=== PATIENT | female | born 1970 ===

== ENCOUNTER 2017-02-03 20:17 | Emergency (ER) | payer OTHER ==
[2017-02-03 20:17] VITALS: BMI 27.4
[2017-02-03 20:52] VITALS: RESP 20
--- NOTE | 2017-02-03 21:16 | C.PDOC ---
History Of Present Illness 46 year old female presents to ED with complaints of fever since last night. She reports not feeling well, generalized body aches, headache, urinary frequency. She took ibuprofen with little relief. Denies any dizziness, cough, SOB, chest pain, abdominal pain, rash, recent travel or sick contacts. Time Seen by Provider: 02/03/17 21:06 Chief Complaint (Nursing): Flu-like Symptoms History Per: Patient History/Exam Limitations: no limitations Onset/Duration Of Symptoms: Hrs Current Symptoms Are (Timing): Still Present Location Of Pain: Diffuse Myalgias, Headache Sick Contacts (Context): None Associated Symptoms: Fever, Myalgias, Other ((+) Headache, Urinary frequency. (- ) SOB, chest pain, abdominal pain, rash). denies: Cough Ear Symptoms: Bilateral: None Recent travel outside of the [place]: No Past Medical History Reviewed: Historical Data, Nursing Documentation, Vital Signs Vital Signs: Last Vital Signs Temp 100.3 F H 02/03/17 21:52 Pulse 110 H 02/03/17 21:52 Resp 20 02/03/17 21:52 BP 113/78 02/03/17 21:52 Pulse Ox 99 02/03/17 22:31 - Medical History PMH: No Chronic Diseases Surgical History: No Surg Hx Family History: States: Unknown Family Hx - Social History Hx Alcohol Use: No Hx Substance Use: No - Immunization History Hx Tetanus Toxoid Vaccination: Yes Hx Influenza Vaccination: No Hx Pneumococcal Vaccination: No Review Of Systems Constitutional: Positive for: Fever Eyes: Negative for: Vision Change ENT: Negative for: Ear Pain, Throat Pain Cardiovascular: Negative for: Chest Pain, Palpitations Respiratory: Negative for: Cough, Shortness of Breath Gastrointestinal: Negative for: Vomiting, Abdominal Pain, Diarrhea Genitourinary: Positive for: Frequency Musculoskeletal: Positive for: Other (Generalized body aches) Skin: Negative for: Rash Neurological: Negative for: Headache, Dizziness Physical Exam - Physical Exam Appears: Non-toxic, No Acute Distress Skin: Normal Color, Warm, Dry Head: Atraumatic, Normacephalic Eye(s): bilateral: Normal Inspection, PERRL, EOMI Ear(s): Bilateral: Normal Nose: Normal, No Flaring, No Discharge Oral Mucosa: Moist Throat: Normal, No Erythema, No Exudate Neck: Normal, Supple Chest: Symmetrical Cardiovascular: Rhythm Regular Respiratory: Normal Breath Sounds, No Rales, No Rhonchi, No Wheezing Gastrointestinal/Abdominal: Soft, No Tenderness Back: Normal Inspection, No CVA Tenderness Extremity: Bilateral: Atraumatic, Normal Color And Temperature, Normal ROM Neurological/Psych: Oriented x3, Normal Speech Gait: Steady ED Course And Treatment O2 Sat by Pulse Oximetry: 99 Medical Decision Making Medical Decision Making: Impression: Fever Differential diagnosis includes but not limited to: influenza, viral syndrome, UTI Plan: * RN gave Tylenol during triage * UA, UCG, culture Progress: UA shows Nitrates, LE and WBCs. Will treat with Cipro PO. On re-evaluation patient fever has reduced. She reports feeling mildly better. Explain results to patient. Instruct to drink fluids rest and take Motrin or tylenol for fever. Will discharge with Rx Cipro Disposition Counseled Patient/Family Regarding: Diagnosis, Need For Followup, Rx Given - Disposition Referrals: [facility] [Outside] [facility] [Outside] [facility] [Outside] Disposition: HOME/ ROUTINE Disposition Time: 21:58 Condition: STABLE Additional Instructions: [place] el antibitico dos veces al da. siga con moreira mdico o clnica primaria. Tylenol o Motrin alternando cada 4-6 horas para la fiebre 100.4F o ms alto. Descanse y andreina muchos lquidos Prescriptions: Ciprofloxacin [Cipro] 1 tab PO BID #10 tab Ibuprofen [Motrin] 600 mg PO Q8 #30 tab Instructions: Urinary Tract Infection in Women (ED) Forms: [facility] (Scottish), Work Excuse Print Language: STATELESS - POA Present On Arrival: None - Clinical Impression Clinical Impression: Fever, UTI (urinary tract infection) - Scribe Statement The provider has reviewed the documentation as recorded by the Scribe Jonathan Flores All medical record entries made by the Scribe were at my direction and personally dictated by me. I have reviewed the chart and agree that the record accurately reflects my personal performance of the history, physical exam, medical decision making, and the department course for this patient. I have also personally directed, reviewed, and agree with the discharge instructions and disposition.
[2017-02-03 21:43] LABS: RBC URINE 45 /hpf (0-3); URINE BACTERIA MANY (<OCC); URINE BILIRUBIN NEGATIVE (NEGATIVE); URINE BLOOD 2+ (NEGATIVE); URINE COLOR Yellow (YELLOW); URINE GLUCOSE (UA) NORMAL (Normal); URINE KETONE 1+ mg/dL (NEGATIVE); URINE LEUKOCYTE ESTERASE 3+ Leu/uL (Negative); URINE PROTEIN 1+ mg/dL (NEGATIVE); URINE UROBILINOGEN NORMAL mg/dL (0.2-1.0); WBC URINE 283 /hpf (0-5)
[2017-02-03 21:52] VITALS: BP 113/78; PULSE 110; TEMP 100.3
[2017-02-03 22:00] VITALS: O2SAT 99
== END 2017-02-03 22:30 | disposition home or self-care (01) ==
LOC: C.ER 20:17
DX: N39.0 Urinary tract infection, site not specified (principal); R50.9 Fever, unspecified

== ENCOUNTER 2017-02-05 15:44 | Emergency (ER) | payer OTHER ==
[2017-02-05 15:44] VITALS: BMI 27.4
[2017-02-05 15:51] VITALS: BP 115/72; PULSE 69; RESP 18; TEMP 98; O2SAT 100
--- NOTE | 2017-02-05 18:44 | C.PDOC ---
History Of Present Illness 46 y/o female presents to ED with complaints of mild nausea and x2 episodes of vomiting. Patient states she is currently being treated for UTI, was seen at ED 2 days ago and is compliant with medication. Patient denies fever, hematuria or any other complaints at this time. Chief Complaint (Nursing): Flu-like Symptoms History Per: Patient History/Exam Limitations: no limitations Onset/Duration Of Symptoms: Days Current Symptoms Are (Timing): Still Present Past Medical History Reviewed: Historical Data, Nursing Documentation, Vital Signs Vital Signs: Last Vital Signs Temp 98 F 02/05/17 15:50 Pulse 69 02/05/17 15:50 Resp 18 02/05/17 15:50 BP 115/72 02/05/17 15:50 Pulse Ox 100 02/05/17 18:45 - Medical History PMH: No Chronic Diseases Surgical History: No Surg Hx Family History: States: No Known Family Hx - Social History Hx Alcohol Use: No Hx Substance Use: No - Immunization History Hx Tetanus Toxoid Vaccination: Yes Hx Influenza Vaccination: No Hx Pneumococcal Vaccination: No Review Of Systems Except As Marked, All Systems Reviewed And Found Negative. Constitutional: Negative for: Fever, Chills Gastrointestinal: Positive for: Nausea, Vomiting Genitourinary: Negative for: Hematuria Skin: Negative for: Rash Neurological: Negative for: Weakness, Numbness Physical Exam - Physical Exam Appears: Non-toxic, No Acute Distress Skin: Warm, Dry, No Rash Head: Atraumatic, Normacephalic Eye(s): bilateral: Normal Inspection Oral Mucosa: Moist Neck: Normal ROM, Supple Chest: Symmetrical Cardiovascular: Rhythm Regular Respiratory: Normal Breath Sounds, No Rales, No Rhonchi, No Wheezing Gastrointestinal/Abdominal: Soft, No Tenderness, No Guarding, No Rebound Back: No CVA Tenderness Extremity: Normal ROM, Capillary Refill (<2 seconds) Neurological/Psych: Oriented x3, Normal Motor, Normal Sensation ED Course And Treatment O2 Sat by Pulse Oximetry: 100 (RA) Pulse Ox Interpretation: Normal Progress Note: Patient given nausea medication at ED and prescription. Advised to finished antibiotics for improvement of symptoms Disposition - Disposition Disposition: HOME/ ROUTINE Disposition Time: 16:55 Condition: GOOD Additional Instructions: Thank you for letting us take care of you today. Your provider was Dr. Fuentes. You were treated for a urinary tract infection. The emergency medical care you received today was directed at your acute symptoms. If you were prescribed any medication, please fill it and take as directed. It may take several days for your symptoms to resolve. Return to the Emergency Department if your symptoms worsen, do not improve, or if you have any other problems. Please contact your doctor or call one of the physicians/clinics you have been referred to that are listed on the Patient Visit Information form that is included in your discharge packet. Bring any paperwork you were given at discharge with you along with any medications you are taking to your follow up visit. Our treatment cannot replace ongoing medical care by a primary care provider (PCP) outside of the emergency department. Thank you for allowing the [facility] team to be part of your care today. Follow up with your doctor as scheduled. Prescriptions: Ondansetron ODT [Zofran ODT] 4 mg PO Q6 PRN #15 odt PRN Reason: Nausea/Vomiting Ranitidine HCl [Zantac] 150 mg PO BID #20 tablet Instructions: Urinary Tract Infection in Women (ED) Forms: Gen Discharge Inst Persian Print Language: SURINAMESE - Clinical Impression Clinical Impression: UTI (urinary tract infection) - Scribe Statement The provider has reviewed the documentation as recorded by the Laloibjosselin Guerra All medical record entries made by the Jcarlos were at my direction and personally dictated by me. I have reviewed the chart and agree that the record accurately reflects my personal performance of the history, physical exam, medical decision making, and the department course for this patient. I have also personally directed, reviewed, and agree with the discharge instructions and disposition.
== END 2017-02-05 17:04 | disposition home or self-care (01) ==
LOC: C.ER 15:44
DX: N39.0 Urinary tract infection, site not specified (principal)
CPT/HCPCS: 96372; 99283; J1885